=== PATIENT | female | born 1990 | race Caucasian/White ===

== ENCOUNTER 2018-04-16 09:00 | Emergency (ER) | payer OTHER ==
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
[2018-04-16 11:31] VITALS: BP 121/67
== END 2018-04-16 11:27 | disposition home or self-care (01) ==
LOC: ER 09:00
DX: S90.521A Blister (nonthermal), right ankle, initial encounter (principal); G89.18 Other acute postprocedural pain; M79.671 Pain in right foot; X58.XXXA Exposure to other specified factors, initial encounter; Z98.890 Other specified postprocedural states; J45.909 Unspecified asthma, uncomplicated
CPT/HCPCS: 99283

== ENCOUNTER 2018-04-24 15:08 | Emergency (ER) | payer OTHER ==
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
[2018-04-24] MEDS ORDERED: OXYCODONE-ACETAMINOPHEN 5-325 MG TABLET PO ONE (16:42)
[2018-04-24 17:10] VITALS: BP 107/60
== END 2018-04-24 17:10 | disposition home or self-care (01) ==
LOC: ER 15:08
DX: T81.33XA Disruption of traumatic injury wound repair, initial encounter (principal); M79.671 Pain in right foot; W20.8XXA Other cause of strike by thrown, projected or falling object, initial encounter; Y93.K1 Activity, walking an animal; F17.200 Nicotine dependence, unspecified, uncomplicated; J45.909 Unspecified asthma, uncomplicated
CPT/HCPCS: 99283

== ENCOUNTER 2019-01-26 08:39 | Day surgery (SDC) | payer BC ==
[~2019-01-26 08:39] MED LIST: PROPOFOL INJ 200 MG/20 ML VIAL IV ONE
[2019-01-26 11:03] VITALS: BP 114/69
--- NOTE | 2019-01-26 12:06 | Operative Report ---
Operative Report DATE OF SURGERY: 01/26/19 Operative Report: The risks, benefits and alternatives of the procedure including the risk of bleeding, perforation requiring surgery have been explained to the patient in detail and informed consent has been obtained. Patient is taken back to the endoscopy suite and placed in the left, lateral decubital position. Timeout was called. Propofol medication is administered. A rectal examination was done which did not reveal any masses, or fissures. An Olympus videoscope was inserted into the patient's rectum. The scope was then carefully advanced all the way to the cecum. The cecum was identified by the usual anatomical landmarks of the ileocecal valve as well as the appendiceal office. Photodocumentation is obtained. Scope was then sequentially pulled back via the various segments of the colon including the ascending colon, hepatic flexure, transverse colon, splenic flexure, descending colon and finally into the rectosigmoid portions of the colon. Retroflexion maneuver was performed. PREOPERATIVE DIAGNOSIS: History of rectal bleeding POSTOPERATIVE DIAGNOSIS: Internal hemorrhoids with a small tear adjacent. Random biopsies taken in the terminal ileum to rule out Crohn's disease OPERATION: Colonoscopy with biopsy SURGEON: MICHAEL SHAFFER ANESTHESIA: LMAC TISSUE REMOVED OR ALTERED: As noted above. COMPLICATIONS: None. ESTIMATED BLOOD LOSS: None. INTRAOPERATIVE FINDINGS: As noted above. PROCEDURE: Patient tolerated the procedure well. No immediate postprocedure complications are noted. Patient is discharged in good condition. Discharge date 01/26/2019. Discharge diet: Regular. Discharge activity: Regular. 2 to 3-week follow-up to discuss findings. Patient is instructed to call the office or proceed to the emergency room should there be any further proximal questions. I will wait on the pathology.
== END 2019-01-26 10:52 | disposition home or self-care (01) ==
LOC: END 08:39
PROVIDERS: ATTEND Internal Medicine Gastroenterology
DX: K64.8 Other hemorrhoids (principal); K92.1 Melena; R19.4 Change in bowel habit; R10.84 Generalized abdominal pain; F17.210 Nicotine dependence, cigarettes, uncomplicated; J45.40 Moderate persistent asthma, uncomplicated; Z79.899 Other long term (current) drug therapy; Z79.51 Long term (current) use of inhaled steroids
CPT/HCPCS: 45380; 88305 ×2; J2704